=== PATIENT | male | born 1945 | race Caucasian/White ===

== ENCOUNTER 2024-03-12 11:05 | Outpatient (CLI) | payer OTHER | END 2024-03-12 11:06 | disposition home or self-care (01) | LOC: BICMRI 11:05 | DX: M51.36 Other intervertebral disc degeneration, lumbar region (principal); M47.816 Spondylosis without myelopathy or radiculopathy, lumbar region; M48.061 Spinal stenosis, lumbar region without neurogenic claudication; M48.07 Spinal stenosis, lumbosacral region | CPT/HCPCS: 72148 ==

== ENCOUNTER 2024-09-13 15:00 | Outpatient (CLI) | payer OTHER | END 2024-09-13 15:01 | disposition home or self-care (01) | LOC: SCSRAD 15:00 | PROVIDERS: ATTEND Family Medicine | DX: Z01.818 Encounter for other preprocedural examination (principal) | CPT/HCPCS: 71046 ==